=== PATIENT | male | born 1945 | race Caucasian/White ===

== ENCOUNTER 2019-04-12 20:40 | Inpatient (IN) | payer MEDICARE, BC ==
[~2019-04-12] VITALS: Ht 172.7 cm; Wt 105.2 kg
[~2019-04-12 20:40] MED LIST: ALLO300T PO; FLUT9.9S NS; HYDR-3241 PO; INFL100V INJ; LISI30TA4 PO; PANT40TA3 PO; TAMS-11 PO
[2019-04-12] MEDS ORDERED: ONDANSETRON 2MG/ML, 2ML IVPush ONE (21:30)
[2019-04-12] MEDS ORDERED: SODIUM CHLORIDE FLUSH 10ML SYR IVF ONE (21:30)
[2019-04-12] MEDS ORDERED: SODIUM CHLORIDE 0.9% 1,000ML IVBOLUS ONE (21:30)
[2019-04-12] MEDS ORDERED: ONDANSETRON 2MG/ML, 2ML ONE (21:48)
[2019-04-12 22:08] LABS: BASOPHILS # (AUTO) 0.01 x10^3/uL (0-0.1); BASOPHILS % (AUTO) 0 % (0-1); EOSINOPHILS # (AUTO) 0.04 x10^3/uL (0-0.4); EOSINOPHILS % (AUTO) 0 % (1-7); LYMPHOCYTES # (AUTO) 0.98 x10^3/uL (1-3.4); LYMPHOCYTES % (AUTO) 8 % (22-44); MD NO; MEAN CORPUSCULAR HEMOGLOBIN 30.7 pg (27.5-34.5); MEAN CORPUSCULAR HGB CONC 33.5 g/dL (33.2-36.2); MEAN CORPUSCULAR VOLUME 91.7 fL (81-97); MEAN PLATELET VOLUME 7.9 fL (7.4-10.4); MONOCYTES # (AUTO) 0.66 x10^3/uL (0.2-0.8); MONOCYTES % (AUTO) 6 % (2-9); NEUTROPHILS # (AUTO) 10.26 x10^3/uL (1.8-6.8); NEUTROPHILS % (AUTO) 86 % (42-75); PLATELET COUNT 230 x10^3/uL (130-400); RED BLOOD COUNT 5.42 x10^6/uL (4.38-5.82); RED CELL DISTRIBUTION WIDTH 14.8 % (9.4-14.8)
[2019-04-12 22:17] LABS: ALANINE AMINOTRANSFERASE 49 U/L (12-78); ALBUMIN 4.3 g/dL (3.4-5.0); ANION GAP 7 mmol/L (5-15); CALCIUM 9.7 mg/dL (8.5-10.1); CHLORIDE 108 mmol/L (98-107); CREATININE 1.51 mg/dL (0.7-1.3)
[2019-04-12 22:19] LABS: ALKALINE PHOSPHATASE 83 U/L (45-117); BILIRUBIN,TOTAL 0.9 mg/dL (0.2-1.0); TOTAL PROTEIN 9.2 g/dL (6.4-8.2)
--- NOTE | 2019-04-12 23:53 | NUR ---
PT RESTING ON GURNEY, AT BEDSIDE. VSS AND WILL CONT TO MONITOR.
[2019-04-13 01:44] VITALS: BP 133/80
[2019-04-13 02:45] VITALS: BP 133/80
[2019-04-13] MEDS ORDERED: PROMETHAZINE 25 MG/ML, 1ML IM PRN (04:00)
[2019-04-13] MEDS ORDERED: ACETAMINOPHEN 325 MG TABLET PO PRN (04:00)
[2019-04-13] MEDS ORDERED: morphine SULFATE 10 MG/ML, 1ML IVPush PRN (04:00)
[2019-04-13] MEDS ORDERED: ONDANSETRON 2MG/ML, 2ML IVPush PRN (04:00)
[2019-04-13] MEDS ORDERED: LABETALOL 5MG/ML, 20ML IVPush PRN (04:00)
[2019-04-13] MEDS: LACTATED RINGERS 1,000 ML IV SCH ×4 (04:06→14:31)
[2019-04-13] MEDS: HEPARIN 5,000 UNITS/ML, 1ML SQ SCH ×2 (05:58→13:15)
[2019-04-13 08:30] LABS: ANION GAP 8 mmol/L (5-15); CALCIUM 9.1 mg/dL (8.5-10.1); CHLORIDE 112 mmol/L (98-107)
[2019-04-13] MEDS ORDERED: TAMSULOSIN 0.4 MG CAP.ER.24H PO SCH (09:00)
[2019-04-13 09:33] VITALS: BP 144/81
[2019-04-13 10:14] LABS: CLOSTRIDIUM DIFFICILE ANTIGEN NEGATIVE; CLOSTRIDIUM DIFFICILE TOXIN NEGATIVE (Negative)
[2019-04-13 13:29] VITALS: BP 115/71
[2019-04-13] MEDS ORDERED: VALA500T4 PO (13:49)
[2019-04-13] MEDS ORDERED: ONDA4TAB7 PO (13:49)
== END 2019-04-13 16:17 | disposition home or self-care (01) | DRG 391 ==
LOC: ED 04-13 01:03 → EDIP 04-13 01:05 → 3N 04-13 01:35 → DCLOUNGE 04-13 16:10
PROVIDERS: ADMIT Family Medicine; ATTEND Family Medicine
DX: A08.39 Other viral enteritis (principal); N17.0 Acute kidney failure with tubular necrosis; K50.90 Crohn's disease, unspecified, without complications; R17 Unspecified jaundice; E66.9 Obesity, unspecified; F12.90 Cannabis use, unspecified, uncomplicated; I10 Essential (primary) hypertension; E86.0 Dehydration; K21.9 Gastro-esophageal reflux disease without esophagitis; K40.90 Unilateral inguinal hernia, without obstruction or gangrene, not specified as recurrent; M06.9 Rheumatoid arthritis, unspecified; M10.9 Gout, unspecified; N40.0 Benign prostatic hyperplasia without lower urinary tract symptoms; Z96.611 Presence of right artificial shoulder joint; Z68.35 Body mass index [BMI] 35.0-35.9, adult; Z79.899 Other long term (current) drug therapy; Z87.440 Personal history of urinary (tract) infections; Z87.891 Personal history of nicotine dependence
CPT/HCPCS: 36415; 74177; 80048; 80053; 83690; 83735; 84100; 85025; 87046; 87324; 87427; 96374; J2405; J7030; J7120

== ENCOUNTER 2019-09-26 05:10 | Inpatient (IN) | payer MEDICARE, BC ==
[~2019-09-26] VITALS: Ht 177.8 cm; Wt 105.0 kg
[~2019-09-26 05:10] MED LIST changes: +ONDA4TAB7 PO; +VALA500T4 PO
--- NOTE | 2019-09-26 05:15 | NUR ---
Pt arrived to room 2 and immediately stated he needed to go to the restroom. Pt returned to room, stated that he felt like he just couldn't get in a position of comfort. Pt states he has hx of crohns and was 2 weeks late getting his injection. Pt states this pain has been intermittent for approx 3 weeks, but was much worse yesterday and today. Pt lined, labbed and medicated with moderate relief.
[2019-09-26] MEDS ORDERED: ONDANSETRON 2MG/ML, 2ML ONE (05:41)
[2019-09-26] MEDS ORDERED: HYDROmorphone 2 MG/ML, 1ML ONE (05:41)
[2019-09-26 05:59] LABS: BASOPHILS # (AUTO) 0.04 x10^3/uL (0-0.1); BASOPHILS % (AUTO) 0 % (0-1); EOSINOPHILS # (AUTO) 0.14 x10^3/uL (0-0.4); EOSINOPHILS % (AUTO) 1 % (1-7); LYMPHOCYTES # (AUTO) 2.63 x10^3/uL (1-3.4); LYMPHOCYTES % (AUTO) 21 % (22-44); MD NO; MEAN CORPUSCULAR HEMOGLOBIN 31.5 pg (27.5-34.5); MEAN CORPUSCULAR HGB CONC 33.4 g/dL (33.2-36.2); MEAN CORPUSCULAR VOLUME 94.1 fL (81-97); MEAN PLATELET VOLUME 7.7 fL (7.4-10.4); MONOCYTES # (AUTO) 0.84 x10^3/uL (0.2-0.8); MONOCYTES % (AUTO) 7 % (2-9); NEUTROPHILS # (AUTO) 9.18 x10^3/uL (1.8-6.8); NEUTROPHILS % (AUTO) 72 % (42-75); PLATELET COUNT 340 x10^3/uL (130-400); RED BLOOD COUNT 4.56 x10^6/uL (4.38-5.82); RED CELL DISTRIBUTION WIDTH 14.9 % (9.4-14.8)
[2019-09-26] MEDS ORDERED: SODIUM CHLORIDE FLUSH 10ML SYR IVF ONE (06:00)
[2019-09-26] MEDS ORDERED: ONDANSETRON 2MG/ML, 2ML IVPush ONE (06:00)
[2019-09-26] MEDS ORDERED: HYDROmorphone 2 MG/ML, 1ML IVPush PRN ×2 (06:00→09:30)
[2019-09-26 06:01] LABS: ALANINE AMINOTRANSFERASE 142 U/L (12-78); ALBUMIN 3.7 g/dL (3.4-5.0); ANION GAP 6 mmol/L (5-15); CALCIUM 9.1 mg/dL (8.5-10.1); CHLORIDE 107 mmol/L (98-107); CREATININE 1.05 mg/dL (0.7-1.3)
[2019-09-26 06:02] LABS: MICROSCOPIC INDICATED
[2019-09-26 06:04] LABS: ALKALINE PHOSPHATASE 203 U/L (45-117); BILIRUBIN,TOTAL 1.1 mg/dL (0.2-1.0); TOTAL PROTEIN 8.4 g/dL (6.4-8.2)
--- NOTE | 2019-09-26 06:53 | NUR ---
BEDSIDE REPORT FROM LEODAN DAVID, PT RESTING IN [facility], NO NEEDS AT THIS TIME. AWAITING DISPO
[2019-09-26] MEDS ORDERED: AMPICILLIN/SULBACTAM 3 GM in SODIUM CHLORIDE 0.9% 100 ML IV ONE (07:30)
--- NOTE | 2019-09-26 07:33 | NUR ---
PT TO MRI FOR MRCP
[2019-09-26] MEDS ORDERED: LABETALOL 5MG/ML, 20ML IVPush PRN (09:30)
[2019-09-26] MEDS ORDERED: ONDANSETRON ODT 4 MG PO PRN (09:30)
[2019-09-26] MEDS ORDERED: ENALAPRILAT 1.25 MG/ML, 2ML IV PRN ×2 (09:30→19:00)
[2019-09-26] MEDS ORDERED: ONDANSETRON 2MG/ML, 2ML IVPush PRN ×2 (09:30→14:30)
--- NOTE | 2019-09-26 09:58 | NUR ---
REPORT TO DAPHNE DAVID
[2019-09-26 10:21] VITALS: BP 146/84
[2019-09-26] MEDS ORDERED: ENALAPRILAT MC SCH (10:30)
[2019-09-26 10:55] VITALS: BP 146/84
[2019-09-26] MEDS: SODIUM CHLORIDE 0.9% 1,000 ML IV SCH (11:07)
[2019-09-26] MEDS: PANTOPRAZOLE 40 MG IV IVPush SCH (11:57)
[2019-09-26] MEDS: PIPERACILLIN/TAZO/PMX 3.375GM 50 ML IV SCH ×3 (12:37→23:07)
[2019-09-26] MEDS ORDERED: CHLORHEXIDINE 15 ML UDC MM ONE ×2 (13:30→15:00)
[2019-09-26] MEDS ORDERED: BUPIVACAINE/EPI 0.5% 1:200K ONE (13:59)
[2019-09-26] MEDS ORDERED: THROMBIN 5,000 UNIT VIAL TP ONE (13:59)
[2019-09-26] MEDS ORDERED: ROCURONIUM 10MG/ML,5ML ONE (14:02)
[2019-09-26] MEDS ORDERED: LIDOCAINE-MPF 2% ,5ML ONE (14:02)
[2019-09-26] MEDS ORDERED: PROPOFOL 10 MG/ML, 20ML ONE (14:02)
[2019-09-26] MEDS ORDERED: MIDAZOLAM 1 MG/ML, 2ML ONE (14:02)
[2019-09-26] MEDS ORDERED: GLYCOPYRROLATE 0.2MG/1ML, 5ML ONE ×2 (14:02→15:14)
[2019-09-26] MEDS ORDERED: DEXAMETHASONE 4 MG/ML, 1ML ONE (14:02)
[2019-09-26] MEDS ORDERED: FENTANYL PF 100 MCG/2ML ONE ×3 (14:03→16:15)
[2019-09-26] MEDS ORDERED: DIAZEPAM 5 MG/ML, 2ML IVPush PRN (14:30)
[2019-09-26] MEDS ORDERED: HALOPERIDOL 5 MG/ML IV PRN (14:30)
[2019-09-26] MEDS ORDERED: MIDAZOLAM 1 MG/ML, 2ML IV PRN (14:30)
[2019-09-26] MEDS ORDERED: EPHEDRINE 50 MG/ML, 1ML IVPush PRN (14:30)
[2019-09-26] MEDS ORDERED: KETOROLAC 30 MG/1 ML IV PRN ×2 (14:30→19:00)
[2019-09-26] MEDS ORDERED: EPHEDRINE 50 MG/ML, 1ML IM PRN (14:30)
[2019-09-26] MEDS ORDERED: LABETALOL 5MG/ML, 20ML IV PRN (14:30)
[2019-09-26] MEDS ORDERED: hydrALAzine 20 MG/ML, 1ML IV PRN (14:30)
[2019-09-26] MEDS ORDERED: LORazepam 2 MG/ML, 1ML IVPush PRN (14:30)
[2019-09-26] MEDS ORDERED: ACETAMINOPHEN 325 MG TABLET PO PRN ×2 (14:30→19:00)
[2019-09-26] MEDS ORDERED: HYDROcodone/APAP 7.5-325MG/15ML UDC PO PRN (14:30)
[2019-09-26] MEDS ORDERED: OXYcodone 5 MG/5 ML ORAL.SOL UDC PO PRN (14:30)
[2019-09-26] MEDS ORDERED: DIPHENHYDRAMINE 50 MG/ML, 1ML IVPush PRN (14:30)
[2019-09-26] MEDS ORDERED: ALBUTEROL/IPRATROPIUM 2.5MG/0.5MG, 3 ML NPPB PRN (14:30)
[2019-09-26] MEDS ORDERED: METOCLOPRAMIDE 5 MG/ML, 2ML IVPush PRN (14:30)
[2019-09-26] MEDS ORDERED: MEPERIDINE/PF 25MG/0.5ML IVPush PRN (14:30)
[2019-09-26] MEDS ORDERED: LABETALOL 5MG/ML, 20ML ONE (15:14)
[2019-09-26] MEDS ORDERED: NEOSTIGMINE 1 MG/ML, 10ML ONE (15:14)
[2019-09-26] MEDS ORDERED: CEFAZOLIN 1,000 MG ONE (15:14)
[2019-09-26] MEDS ORDERED: OXYcodone 5 MG/5 ML ORAL.SOL UDC ONE (16:15)
[2019-09-26] MEDS ORDERED: HYDROmorphone 1 MG/ML, 1ML INJ ONE (16:15)
[2019-09-26] MEDS: FENTANYL PF 100 MCG/2ML IV PRN ×3 (16:19→17:31)
[2019-09-26] MEDS: HYDROmorphone 1 MG/ML, 1ML INJ IVPush PRN ×2 (16:34→16:39)
[2019-09-26] MEDS ORDERED: DIPHENHYDRAMINE 50 MG/ML, 1ML ONE (16:36)
[2019-09-26 17:33] VITALS: BP 158/84
[2019-09-26] MEDS ORDERED: DIPHENHYDRAMINE 50 MG/ML, 1ML IV PRN (19:00)
[2019-09-26] MEDS ORDERED: DIPHENHYDRAMINE 25 MG CAPSULE PO PRN (19:00)
[2019-09-26] MEDS ORDERED: LORazepam 1MG TABLET PO PRN (19:00)
[2019-09-26] MEDS: LACTATED RINGERS 1,000 ML IV SCH (19:00)
[2019-09-26] MEDS ORDERED: LORazepam 2 MG/ML, 1ML IV PRN (19:00)
[2019-09-26] MEDS ORDERED: ACETAMINOPHEN 650 MG SUPP PR PRN (19:00)
[2019-09-26] MEDS ORDERED: ONDANSETRON 2MG/ML, 2ML IV PRN (19:00)
[2019-09-26] MEDS: OXYcodone/APAP 5/325MG TABLET PO PRN (20:38)
[2019-09-26] MEDS: SODIUM CHLORIDE FLUSH 10ML SYR IVF SCH (21:00)
[2019-09-26 21:17] VITALS: BP 164/81
[2019-09-26] MEDS ORDERED: PHENAZOPYRIDINE 200 MG TABLET PO PRN (23:30)
[2019-09-27] MEDS: OXYcodone/APAP 5/325MG TABLET PO PRN ×3 (00:43→05:24)
[2019-09-27 01:10] VITALS: BP 158/82
[2019-09-27] MEDS: SODIUM CHLORIDE 0.9% 1,000 ML IV SCH (04:00)
[2019-09-27 04:24] VITALS: BP 139/74
[2019-09-27] MEDS: LACTATED RINGERS 1,000 ML IV SCH (04:31)
[2019-09-27] MEDS: PANTOPRAZOLE 40 MG IV IVPush SCH (04:33)
[2019-09-27] MEDS: PIPERACILLIN/TAZO/PMX 3.375GM 50 ML IV SCH ×2 (04:41→10:57)
[2019-09-27] MEDS ORDERED: PANTOPRAZOLE 40MG TABLET PO SCH (06:00)
[2019-09-27 06:37] LABS: BASOPHILS # (AUTO) 0.03 x10^3/uL (0-0.1); BASOPHILS % (AUTO) 0 % (0-1); EOSINOPHILS % (AUTO) 0 % (1-7); LYMPHOCYTES # (AUTO) 1.24 x10^3/uL (1-3.4); LYMPHOCYTES % (AUTO) 14 % (22-44); MD NO; MEAN CORPUSCULAR HEMOGLOBIN 31.3 pg (27.5-34.5); MEAN CORPUSCULAR HGB CONC 32.7 g/dL (33.2-36.2); MEAN CORPUSCULAR VOLUME 95.8 fL (81-97); MONOCYTES # (AUTO) 0.18 x10^3/uL (0.2-0.8); MONOCYTES % (AUTO) 2 % (2-9); NEUTROPHILS # (AUTO) 7.43 x10^3/uL (1.8-6.8); NEUTROPHILS % (AUTO) 84 % (42-75); PLATELET COUNT 289 x10^3/uL (130-400); RED BLOOD COUNT 4.23 x10^6/uL (4.38-5.82); RED CELL DISTRIBUTION WIDTH 15.1 % (9.4-14.8)
[2019-09-27 06:45] LABS: ALBUMIN 3.4 g/dL (3.4-5.0); ANION GAP 9 mmol/L (5-15); CALCIUM 9.3 mg/dL (8.5-10.1); CHLORIDE 107 mmol/L (98-107)
[2019-09-27 06:50] LABS: ALANINE AMINOTRANSFERASE 561 U/L (12-78); ALKALINE PHOSPHATASE 221 U/L (45-117); BILIRUBIN,TOTAL 3.2 mg/dL (0.2-1.0); CREATININE 1.04 mg/dL (0.7-1.3); TOTAL PROTEIN 7.7 g/dL (6.4-8.2)
[2019-09-27 07:12] VITALS: BP 174/87
[2019-09-27] MEDS ORDERED: PANTOPRAZOLE 40 MG IV IVPush SCH (07:30)
[2019-09-27] MEDS: SODIUM CHLORIDE FLUSH 10ML SYR IVF SCH (08:41)
[2019-09-27] MEDS ORDERED: ENOXAPARIN 40 MG/0.4 ML SQ SCH (09:00)
[2019-09-27] MEDS ORDERED: ALLOPURINOL 300 MG TABLET PO SCH (09:00)
[2019-09-27] MEDS ORDERED: TAMSULOSIN 0.4 MG CAP.ER.24H PO SCH (09:00)
[2019-09-27] MEDS ORDERED: LISINOPRIL 10 MG TABLET PO SCH (09:00)
[2019-09-27] MEDS ORDERED: OXYC-302 PO (09:42)
[2019-09-27] MEDS ORDERED: POLY17PO5 PO (09:42)
== END 2019-09-27 11:35 | disposition home or self-care (01) | DRG 418 ==
LOC: ED 05:37 → EDIP 09:01 → 4NE 10:13 → DCLOUNGE 09-27 11:25
PROVIDERS: ADMIT Internal Medicine; ATTEND Internal Medicine
PROC: 0FT44ZZ Resection of Gallbladder, Percutaneous Endoscopic Approach (ICD-10-PCS; principal; 2019-09-26 14:00)
DX: K81.0 Acute cholecystitis (principal); K50.90 Crohn's disease, unspecified, without complications; M06.9 Rheumatoid arthritis, unspecified; Z20.828 Contact with and (suspected) exposure to other viral communicable diseases; M10.9 Gout, unspecified; I10 Essential (primary) hypertension; E83.119 Hemochromatosis, unspecified; D72.829 Elevated white blood cell count, unspecified; Z79.899 Other long term (current) drug therapy; Z82.49 Family history of ischemic heart disease and other diseases of the circulatory system; Z80.1 Family history of malignant neoplasm of trachea, bronchus and lung; Z80.3 Family history of malignant neoplasm of breast; Z80.42 Family history of malignant neoplasm of prostate; Z80.8 Family history of malignant neoplasm of other organs or systems; Z90.89 Acquired absence of other organs; Z87.891 Personal history of nicotine dependence; Z87.11 Personal history of peptic ulcer disease
CPT/HCPCS: 36415; 74181; 76700; 80053; 81001; 83690; 85025; 87635; 88304; 93005; 96374; 96375; 99285; G0378; J0690; J1100; J1170; J1650; J1885; J2250; J2405; J2543; J2704; J2710; J3010; C9113; J1200; J7030; J7120

== ENCOUNTER 2020-07-15 17:22 | Inpatient (IN) | payer MEDICARE, BC ==
[~2020-07-15] VITALS: Ht 175.3 cm; Wt 109.4 kg
[~2020-07-15 17:22] MED LIST changes: +OXYC1TAB14 PO; +POLY17PO5 PO
--- NOTE | 2020-07-15 18:27 | NUR ---
PT OFF THE FLOOR TO CT
[2020-07-15 18:48] LABS: MEAN CORPUSCULAR HGB CONC 34.1 g/dL (33.2-36.2); PLATELET COUNT 164 x10^3/uL (130-400); RED BLOOD COUNT 4.37 x10^6/uL (4.38-5.82); RED CELL DISTRIBUTION WIDTH 14.4 % (9.4-14.8)
[2020-07-15 18:58] LABS: ALANINE AMINOTRANSFERASE 57 U/L (12-78); ALBUMIN 3.4 g/dL (3.4-5.0); ANION GAP 6 mmol/L (5-15); CALCIUM 9.3 mg/dL (8.5-10.1); CHLORIDE 103 mmol/L (98-107); CREATININE 2.32 mg/dL (0.7-1.3)
[2020-07-15 19:01] LABS: ALKALINE PHOSPHATASE 81 U/L (45-117); BILIRUBIN,TOTAL 2.5 mg/dL (0.2-1.0); TOTAL PROTEIN 7.7 g/dL (6.4-8.2)
--- NOTE | 2020-07-15 19:06 | NUR ---
report from danilo correa
[2020-07-15] MEDS ORDERED: LIDOCAINE 2%,20 ML JEL.PF.APP MM ONE ×2 (19:24→19:30)
[2020-07-15 19:26] LABS: MD YES
[2020-07-15 19:29] LABS: BAND#(MANUAL) 1.67 x10^3/uL; BANDS%(MANUAL) 7 % (0-7); LYMPH#(MANUAL) 2.63 x10^3/uL (1-3.4); LYMPHS% (MANUAL) 11 % (22-44); MONOS#(MANUAL) 1.91 x10^3/uL (0.3-2.7); MONOS% (MANUAL) 8 % (2-9); SEG#(MANUAL) 17.69 x10^3/uL (1.8-6.8); SEGS% (MANUAL) 74 % (42-75)
[2020-07-15] MEDS ORDERED: CEFTRIAXONE PMX 2GM/50ML 50 ML IVPB ONE (19:30)
[2020-07-15 19:31] LABS: <RBC MORPHOLOGY> NORMAL
[2020-07-15 19:32] LABS: <PLATELET ESTIMATE> ADEQUATE; <PLT MORPHOLOGY> NORMAL PLT MORPH
--- NOTE | 2020-07-15 19:51 | NUR ---
PT STRAIGHT CATHED FOR URINE AND TOLERATED WELL. PIV PLACED AND I EDITH FIRST SET OF BLOOD CULTURES.
--- NOTE | 2020-07-15 19:54 | NUR ---
PT WITH DIFFICULTY URINATING AND PAIN WITH URINATION FOR 3-4 DAYS. FEELS URGE TO URINATE BUT NOT ABLE TO URINATE.
[2020-07-15] MEDS ORDERED: MORPHINE SULFATE 4 MG/ML, 1ML IVPush ONE (20:00)
[2020-07-15] MEDS ORDERED: MORPHINE SULFATE 4 MG/ML, 1ML ONE (20:03)
[2020-07-15] MEDS ORDERED: CEFTRIAXONE PMX 2GM/50ML 50 ML ONE (20:03)
[2020-07-15 20:29] LABS: MICROSCOPIC INDICATED
--- NOTE | 2020-07-15 20:35 | NUR ---
LAB AT BEDSIDE FOR SECOND SET OF BLOOD CULTURES.
[2020-07-15] MEDS ORDERED: SODIUM CHLORIDE 0.9% 1,000ML IVBOLUS ONE (21:00)
--- NOTE | 2020-07-15 21:23 | NUR ---
REPORT TO JOANN HERRON
[2020-07-15] MEDS ORDERED: ACETAMINOPHEN 325 MG TABLET PO PRN (21:30)
[2020-07-15] MEDS ORDERED: POLYETHYLENE GLYCOL 17 GM PACKET PO PRN (21:30)
[2020-07-15] MEDS ORDERED: BISACODYL 10 MG SUPP PR PRN (21:30)
[2020-07-15] MEDS ORDERED: ONDANSETRON ODT 4 MG PO PRN (21:30)
[2020-07-15] MEDS ORDERED: morphine SULFATE 10 MG/ML, 1ML IVPush PRN (21:30)
[2020-07-15] MEDS ORDERED: INFLIXIMAB 100 MG HOMEINJ SCH (21:30)
--- NOTE | 2020-07-15 21:31 | NUR ---
ABX AND FLUID BOLUS INFUSING AT TIME OF TRANSPORT.
[2020-07-15] MEDS: SODIUM CHLORIDE 0.9% 1,000 ML IV SCH (22:14)
[2020-07-16] MEDS ORDERED: PHENAZOPYRIDINE 200 MG TABLET PO PRN
[2020-07-16 04:51] VITALS: BP 124/62
[2020-07-16] MEDS: SODIUM CHLORIDE 0.9% 1,000 ML IV SCH ×4 (05:01→22:53)
[2020-07-16 06:10] LABS: MEAN CORPUSCULAR HEMOGLOBIN 31.7 pg (27.5-34.5); MEAN CORPUSCULAR HGB CONC 33.5 g/dL (33.2-36.2); MEAN PLATELET VOLUME 8.4 fL (7.4-10.4); PLATELET COUNT 147 x10^3/uL (130-400); RED CELL DISTRIBUTION WIDTH 14.3 % (9.4-14.8)
[2020-07-16 06:19] LABS: ANION GAP 8 mmol/L (5-15); CALCIUM 8.5 mg/dL (8.5-10.1); CHLORIDE 105 mmol/L (98-107); CREATININE 2.03 mg/dL (0.7-1.3)
[2020-07-16 06:22] LABS: MD YES
[2020-07-16 06:42] LABS: <PLATELET ESTIMATE> DECREASED; <PLT MORPHOLOGY> NORMAL PLT MORPH; <RBC MORPHOLOGY> NORMAL; BAND#(MANUAL) 0.73 x10^3/uL; BANDS%(MANUAL) 4 % (0-7); LYMPH#(MANUAL) 4.19 x10^3/uL (1-3.4); LYMPHS% (MANUAL) 23 % (22-44); MONOS#(MANUAL) 0.73 x10^3/uL (0.3-2.7); MONOS% (MANUAL) 4 % (2-9); REACTIVE LYMPHS # (MANUAL) 0.18 x10^3/uL (0-0); REACTIVE LYMPHS % (MANUAL) 1 % (0-0); SEG#(MANUAL) 12.38 x10^3/uL (1.8-6.8); SEGS% (MANUAL) 68 % (42-75)
[2020-07-16 06:53] VITALS: BP 121/69
[2020-07-16] MEDS: SENNA/DOCUSATE TABLET PO SCH (08:11)
[2020-07-16] MEDS: TAMSULOSIN 0.4 MG CAP.ER.24H PO SCH (08:11)
[2020-07-16] MEDS: PANTOPRAZOLE 40MG TABLET PO SCH (08:11)
[2020-07-16] MEDS ORDERED: LACTOBACILLUS CHEW TABLET PO SCH (09:00)
[2020-07-16] MEDS: POTASSIUM CHLORIDE 20 MEQ TAB.ER.PRT PO SCH ×2 (10:52→16:01)
[2020-07-16 13:23] VITALS: BP 133/87
[2020-07-16] MEDS: LACTOBACILLUS CHEW TABLET PO SCH ×2 (16:01→21:22)
[2020-07-16 20:01] VITALS: BP 138/72
[2020-07-16] MEDS ORDERED: CEFTRIAXONE PMX 1GM/50ML 50 ML IV SCH (21:00)
[2020-07-17 00:11] VITALS: BP 135/75
[2020-07-17] MEDS: SODIUM CHLORIDE 0.9% 1,000 ML IV SCH ×2 (04:58→11:33)
[2020-07-17 06:06] LABS: BASOPHILS % (AUTO) 0 % (0-1); EOSINOPHILS % (AUTO) 2 % (1-7); LYMPHOCYTES % (AUTO) 22 % (22-44); MEAN CORPUSCULAR HEMOGLOBIN 32.4 pg (27.5-34.5); MEAN CORPUSCULAR HGB CONC 34.3 g/dL (33.2-36.2); MEAN PLATELET VOLUME 8.2 fL (7.4-10.4); MONOCYTES % (AUTO) 9 % (2-9); NEUTROPHILS % (AUTO) 66 % (42-75); PLATELET COUNT 165 x10^3/uL (130-400); RED BLOOD COUNT 3.46 x10^6/uL (4.38-5.82); RED CELL DISTRIBUTION WIDTH 14.5 % (9.4-14.8)
[2020-07-17 06:08] LABS: MD NO
[2020-07-17 06:10] LABS: CHLORIDE 112 mmol/L (98-107)
[2020-07-17 06:19] LABS: ALANINE AMINOTRANSFERASE 34 U/L (12-78); ALBUMIN 2.7 g/dL (3.4-5.0); ALKALINE PHOSPHATASE 63 U/L (45-117); ANION GAP 6 mmol/L (5-15); BILIRUBIN,TOTAL 0.7 mg/dL (0.2-1.0); CREATININE 0.94 mg/dL (0.7-1.3); TOTAL PROTEIN 6.2 g/dL (6.4-8.2)
[2020-07-17 06:59] VITALS: BP 130/75
[2020-07-17] MEDS: PANTOPRAZOLE 40MG TABLET PO SCH (08:15)
[2020-07-17] MEDS: LACTOBACILLUS CHEW TABLET PO SCH (08:15)
[2020-07-17] MEDS: TAMSULOSIN 0.4 MG CAP.ER.24H PO SCH (08:16)
[2020-07-17] MEDS: SENNA/DOCUSATE TABLET PO SCH (08:16)
[2020-07-17] MEDS ORDERED: CEPH-376 PO (11:18)
== END 2020-07-17 13:46 | disposition home or self-care (01) | DRG 871 ==
LOC: ED 18:50 → EDIP 20:44 → 3N 21:48
PROVIDERS: ADMIT Internal Medicine; ATTEND Family Medicine
PROC: 0T9B70Z Drainage of Bladder with Drainage Device, Via Natural or Artificial Opening (ICD-10-PCS; principal; 2020-07-15)
DX: A41.9 Sepsis, unspecified organism (principal); N17.0 Acute kidney failure with tubular necrosis; D84.9 Immunodeficiency, unspecified; K50.90 Crohn's disease, unspecified, without complications; N13.8 Other obstructive and reflux uropathy; E83.119 Hemochromatosis, unspecified; B96.4 Proteus (mirabilis) (morganii) as the cause of diseases classified elsewhere; D64.9 Anemia, unspecified; F10.10 Alcohol abuse, uncomplicated; I10 Essential (primary) hypertension; K21.9 Gastro-esophageal reflux disease without esophagitis; M06.9 Rheumatoid arthritis, unspecified; M10.9 Gout, unspecified; N30.90 Cystitis, unspecified without hematuria; N40.1 Benign prostatic hyperplasia with lower urinary tract symptoms; Z96.611 Presence of right artificial shoulder joint; E80.6 Other disorders of bilirubin metabolism
CPT/HCPCS: 36415; 74176; 80048; 80053; 81001; 83605; 85025; 87040; 87077; 87086; 87186; 93005; 96374; 96375; 99285; G0378; J0696; J2270; J7030